=== PATIENT | male | born 1960 | race Caucasian/White ===

== ENCOUNTER 2025-02-19 08:17 | Outpatient (OUT) | payer MEDICARE, MEDICAID, SELFPAY ==
--- NOTE | 2025-02-19 08:22 | US_ITS ---
[facility] [place] [facility] [id number] Patient Name: ONUR MORENO MRN: [id number] date: 1960 Sex: M Assigned Patient Location: US Current Patient Location: Accession/Order Number: [id number] Exam Date: 02/19/2025 09:31 Report Date: 02/19/2025 09:33 At the request of: HATTIE BRIAN MD Procedure: US abdomen limited Splenic ULTRASOUND: CLINICAL HISTORY: Thrombocytopenia, Anemia COMPARISON: None TECHNIQUE: Grayscale and color Doppler images of the spleen were obtained. FINDINGS: Spleen appears upper limits normal in size measuring 13 cm. No focal lesion. No surrounding fluid. US/US abdomen limited IMPRESSION: SPLEEN APPEARS UPPER LIMITS OF NORMAL IN SIZE MEASURING 13 CM WITHOUT FOCAL LESION.. Impression dictated by: Geovanny Whitten Jr. DDarrylODarryl 02/19/2025 9:33 AM Dictation Location: [place] [address] Electronically authenticated by: [id number] Y Date: 02/19/2025 09:33
--- NOTE | 2025-02-19 08:22 | US_ITS ---
[place] [id number] Patient Name: ONUR MORENO MRN: [id number] date: 1960 Sex: M Assigned Patient Location: US Current Patient Location: US Accession/Order Number: [id number] Exam Date: 02/19/2025 09:30 Report Date: 02/19/2025 09:31 At the request of: HATTIE BRIAN MD Procedure: US right upper quadrant LIMITED ABDOMINAL ULTRASOUND: CLINICAL HISTORY: Thrombocytopenia, Anemia COMPARISON: None TECHNIQUE: Grayscale and color Doppler images of the right upper quadrant organs were obtained. FINDINGS: Pancreas: Visualized portions appear unremarkable. Liver: Unremarkable. Gallbladder: Not visualized. CBD: 2.9 mm RT KIDNEY: No Hydronephrosis US/US right upper quadrant IMPRESSION: NO ACUTE PROCESS. . Impression dictated by: Geovanny Whitten Jr., D.O. 02/19/2025 9:31 AM Dictation Location: [place] [address] Electronically authenticated by: [id number] Y Date: 02/19/2025 09:31
== END 2025-02-19 08:18 | disposition home or self-care (01) ==
LOC: US 08:17
PROVIDERS: PCP Nurse Practitioner; Visit Provider Internal Medicine Hematology & Oncology
DX: D64.9 Anemia, unspecified (principal); D69.6 Thrombocytopenia, unspecified
CPT/HCPCS: 76705

== ENCOUNTER 2025-03-10 07:34 | Outpatient (RCR) | payer MEDICARE, MEDICAID, SELFPAY ==
[2025-02-17 11:53] LABS: Basophils Absolute Auto 0.1 10^3/uL (0.0-0.1); Basophils Percent Auto 1.2 % (0.2-2.0); Eosinophils Absolute Auto 0.5 10^3/uL (0.0-0.7); Eosinophils Percent Auto 10.6 % (0.9-7.0); Hemoglobin 16.2 g/dL (14.0-18.0); Immature Granulocytes Abs Auto 0.02 10^3/uL (0.00-0.03); Immature Granulocytes Pct Auto 0.4 % (0.0-0.5); Lymphocytes Percent Auto 19.1 % (20.5-60.0); Mean Corpuscular HGB Conc 35.2 g/dL (29.9-35.2); Mean Corpuscular Hemoglobin 28.4 pg (25.9-34.0); Mean Corpuscular Volume 80.7 fL (80.0-94.0); Mean Platelet Volume 9.8 fL (9.5-13.5); Monocytes Absolute Auto 0.3 10^3/uL (0.3-0.8); Monocytes Percent Auto 6.2 % (1.7-12.0); Neutrophils Absolute Auto 3.1 10^3/uL (1.4-6.5); Neutrophils Percent Auto 62.5 % (43.0-75.0); Platelet Count 138 10^3/uL (150-450)
[2025-02-17 12:06] LABS: Reticulocyte Pct Auto 1.37 % (0.60-3.10)
[2025-02-17 12:11] LABS: Lactate Dehydrogenase 155 U/L (85-227)
[2025-02-17 12:27] LABS: Percent Iron Saturation 26.7 %
[2025-02-18 03:07] LABS: Vitamin B12 411 pg/mL (232-1245)
[2025-02-19 01:08] LABS: Lupus Reflex Interpretation Comment: (.); PTT-LA 33.3 sec (0.0-43.5); dRVVT 36.3 sec (0.0-47.0)
[2025-02-19 15:08] LABS: Albumin 4.2 g/dL (2.9-4.4); Alpha-1-Globulin 0.1 g/dL (0.0-0.4); Alpha-2-Globulin 0.6 g/dL (0.4-1.0); Free Kappa Lt Chains,S 17.2 mg/L (3.3-19.4); Free Lambda Lt Chains,S 11.6 mg/L (5.7-26.3); Immunoglobulin A, Qn, Serum 133 mg/dL (61-437); Immunoglobulin G, Qn, Serum 1092 mg/dL (603-1613); Immunoglobulin M, Qn, Serum 59 mg/dL (20-172); Kappa/Lambda Ratio,S 1.48 (0.26-1.65); Protein, Total 6.9 g/dL (6.0-8.5)
== END 2025-03-10 14:22 | disposition home or self-care (01) ==
LOC: HEMC 07:34
PROVIDERS: PCP Nurse Practitioner; Visit Provider Internal Medicine Hematology & Oncology
DX: D64.9 Anemia, unspecified (principal); D69.6 Thrombocytopenia, unspecified
CPT/HCPCS: 36415; 82607; 82728; 82746; 82784; 83521; 83540; 83550; 83615; 84155; 84165; 85025; 85045; 86334; G0463

== ENCOUNTER 2025-10-13 09:17 | Outpatient (RCR) | payer MEDICARE, MEDICAID, SELFPAY ==
[2025-10-13 09:49] LABS: Hematocrit 45.5 % (42.0-54.0); Hemoglobin 15.5 g/dL (14.0-18.0); Mean Corpuscular HGB Conc 34.1 g/dL (29.9-35.2); Mean Corpuscular Hemoglobin 28.7 pg (25.9-34.0); Mean Corpuscular Volume 84.3 fL (80.0-94.0); Platelet Count 114 10^3/uL (150-450); Red Blood Count 5.40 10^6/uL (4.70-6.10); White Blood Count 3.8 10^3/uL (4.0-11.0)
[2025-10-13 10:24] LABS: Segmented Neut Absolute Manual 2.39 10^3/uL (1.4-6.5); Segmented Neutrophils % Manual 63.0 (43.0-75.0)
[2025-10-13 10:25] LABS: Atypical Lymphocytes % Manual 5.0 %; Atypical Lymphocytes Abs Man 0.19; Basophils Abs Manual 0.03 10^3/uL (0.00-0.10); Basophils Percent Manual 1.0 % (0.2-2.0); Eosinophils Absolute Manual 0.22 10^3/uL (0.00-0.70); Eosinophils Percent Manual 6.0 % (0.9-7.0); Lymphocytes Absolute Manual 0.64 10^3/uL (1.20-3.80); Lymphocytes Percent Manual 17.0 % (20.5-60.0); Monocytes Absolute Manual 0.30 10^3/uL (0.30-0.80); Monocytes Percent Manual 8.0 % (1.7-12.0)
[2025-10-14 03:07] LABS: Vitamin B12 417 pg/mL (232-1245)
== END 2025-10-14 23:59 | disposition home or self-care (01) ==
LOC: HEMC 09:17
PROVIDERS: PCP Nurse Practitioner; Visit Provider Internal Medicine Hematology & Oncology
DX: D64.9 Anemia, unspecified (principal); D69.6 Thrombocytopenia, unspecified
CPT/HCPCS: 36415; 82607; 83615; 85007; 85027; G0463